=== PATIENT | female | born 1960 | race Caucasian/White ===

== ENCOUNTER 2016-07-06 14:40 | Emergency (ER) | payer BC ==
[~2016-07-06] VITALS: Ht 160 cm; Wt 65.9 kg
[2016-07-06 15:06] VITALS: Ht 160 cm; Wt 65.9 kg
[2016-07-06] MEDS ORDERED: LIDOCAINE/MYLANTA 40 ML BTL PO STA (15:10)
[2016-07-06] MEDS ORDERED: FAMOTIDINE 20 MG INJ IV STA (15:10)
[2016-07-06] MEDS ORDERED: LIDOCAINE 2% VISC 15 ML CUP PO ONE (15:30)
[2016-07-06 15:50] LABS: BASOPHILS % 0.3 % (0.0-2.0); EOSINOPHILS # 0.2 10^3/ul (0.0-0.5); EOSINOPHILS % 2.5 % (0.0-7.0); HEMATOCRIT 42.6 % (37.0-47.0); HEMOGLOBIN 14.2 g/dl (12.0-16.0); LYMPHOCYTES % 14.9 % (15.0-51.0); MEAN CORPUSCULAR HEMOGLOBIN 28.5 pg (29.0-33.0); MEAN CORPUSCULAR HGB CONC 33.4 g/dl (32.0-37.0); MEAN CORPUSCULAR VOLUME 85.2 fl (82.0-101.0); MEAN PLATELET VOLUME 9.6 fl (7.4-10.4); MONOCYTE # 0.5 10^3/ul (0.3-0.9); MONOCYTES % 7.4 % (0.0-11.0); NEUTROPHIL # 4.9 10^3/ul (1.6-7.5); NEUTROPHILS % 74.9 % (39.0-77.0); PLATELET COUNT 233 10^3/UL (140-440); RED CELL DISTRIBUTION WIDTH 12.6 % (11.5-14.5); UNCORRECTED WBC 6.6 10^3/ul (4.8-10.8); WHITE BLOOD COUNT 6.6 10^3/ul (4.8-10.8)
--- NOTE | 2016-07-06 15:59 | RADRPT ---
PROCEDURE: CT Brain without contrast. CLINICAL INDICATION: Pain, headache TECHNIQUE: Routine CT scan of the brain was performed on a high resolution multi detector scanner without intravenous contrast. One or more of the following dose reduction techniques were used: Auto mated exposure control; Adjustment of the mA and/or kV according to patient size; Use of iterative r econstruction technique. CTDI = 44 mGy. DLP = 630 mGy-cm. COMPARISON: No prior relevant examinations are available for comparison. FINDINGS: Hemorrhage: No evidence of intracranial hemorrhage. Acute ischemic changes: No evidence of acute ischemic changes. Mass effect/Midline shift: None. Parenchymal volume: Within normal limits for age. Ventricular system: Concordant with parenchymal volume. Chronic changes: Parenchymal attenuation is within normal limits. Extracranial soft tissues: Unremarkable. Calvarium: No fractures. Paranasal sinuses: Visualized paranasal sinuses are clear. Mastoid air cells: Visualized mastoid air cells are clear. IMPRESSION: No acute intracranial abnormalities. Normal appearance the brain parenchyma. MRI of the brain may be useful for further evaluation. RPTAT: AADD .Deniz Burris MD, MD Date Time Electronically viewed and signed by .Deniz Burris MD, on 07/06/2016 15:58 .B/
[2016-07-06 16:02] LABS: ALBUMIN 4.3 g/dl (3.3-4.9); CHLORIDE 102 mmol/L (97-110); CONDITION 1; POTASSIUM 4.1 mmol/L (3.5-5.1); SODIUM 143 mmol/L (135-144)
[2016-07-06 16:04] LABS: CREATININE 0.73 mg/dl (0.44-1.00)
[2016-07-06 16:05] LABS: ALANINE AMINOTRANSFERASE 40 IU/L (13-69); ALBUMIN/GLOBULIN RATIO 1.34; ALKALINE PHOSPHATASE 84 IU/L (42-121); ANION GAP 16 (8-16); ASPARTATE AMINO TRANSFERASE 35 IU/L (15-46); BILIRUBIN,INDIRECT 0.5 mg/dl (0-1.1); BILIRUBIN,TOTAL 0.5 mg/dl (0.2-1.3); BLOOD UREA NITROGEN 19 mg/dl (7-20); CALCIUM 9.1 mg/dl (8.4-10.2); CARBON DIOXIDE 29 mmol/L (21-31); GLUCOSE 91 mg/dl (70-220); TOTAL PROTEIN 7.5 g/dl (6.1-8.1)
[2016-07-06 16:27] LABS: TROPONIN-I < 0.010 ng/ml (0.00-0.12)
[2016-07-06] MEDS ORDERED: ULT50 PO (16:56)
[2016-07-06] MEDS ORDERED: LIDO20SO19 MM (16:56)
[2016-07-06] MEDS ORDERED: FEXO60TA20 PO (16:58)
[2016-07-06] MEDS ORDERED: traMADol 50 MG TAB PO ONE (17:00)
--- NOTE | 2016-07-06 17:01 | ERD ---
ER Documentation Chief Complaint Date/Time DATE: 07/06/16 TIME: 16:58 Chief Complaint ABDOMINAL PAIN FOR 1 WEEK HPI This a pleasant 55-year-old female is complaining of epigastric pain left upper quadrant pain for the past week after meals. The pain is a burning sensation that occurs after meals within 5 minutes. The patient has some nausea but no vomiting no diarrhea no chest pain or shortness of breath no pain in the back no melena. Patient does drink wine some other acidic foods. Patient is also complaining for the past week she has had off and on tingling to the left upper half of her lip. Currently is not happening. She has no symptoms of the face arms or legs no speech change no headaches. She is asymptomatic currently in this regard. ROS All systems reviewed and are negative except as per history of present illness. Medications Home Meds Active Scripts Lidocaine (Lidocaine Viscous) 100 Ml Soln, 15 ML MM BEFORE MEALS, #120 ML Prov:ROWAN JOVEL DO 07/06/16 Tramadol HCl (Tramadol HCl) 50 Mg Tablet, 50 MG PO Q6, #20 TAB Prov:ROWAN JOVEL DO 07/06/16 Allergies Allergies: Coded Allergies: Penicillins (Unverified Allergy, Unknown, 07/06/16) PMhx/Soc Medical and Surgical Hx: pt denies Medical Hx History of Surgery: Yes (APPENDECTOMY) Hx Alcohol Use: Yes Hx Substance Use: No Hx Tobacco Use: Yes Smoking Status: Former smoker FmHx Family History: No coronary disease Physical Exam Vitals Vital Signs Date Time Temp Pulse Resp B/P Pulse Ox O2 Delivery O2 Flow Rate FiO2 07/06/16 15:06 98.5 70 18 133/85 99 Physical Exam Const: Well-developed, well-nourished Head: Atraumatic, normocephalic Eyes: Normal Conjunctiva, PERRLA, EOMI, normal sclera, no nystagmus ENT: Normal External Ears, Nose and Mouth, moist mucus membranes. Neck: Full range of motion. No meningismus, no lymphadenopathy. Resp: Clear to auscultation bilaterally, no wheezing, rhonchi, rales Cardio: Regular rate and rhythm, no murmurs, S1 S2 present Abd: Soft, mild tenderness to the left upper quadrant, non distended. Normal bowel sounds, no guarding or rebound, no pulsitile abdominal masses or bruits Skin: No petechiae or rashes, no ecchymosis , no maculopapular rash Back: No midline or flank tenderness Ext: No cyanosis, or edema, FROM x 4, normal inspection, neurovascularly intact x 4 Neur: Awake and alert, STR 5/5 x 4, sensation intact x 4, no focal findings, cerebellum intact Psych: Normal Mood and Affect Result Diagram: 07/06/16 1520 07/06/16 1520 Results 24 hrs Laboratory Tests Test 07/06/16 15:20 Alanine Aminotransferase (ALT/SGPT) 40IU/L Albumin 4.3g/dl Albumin/Globulin Ratio 1.34 Alkaline Phosphatase 84IU/L Anion Gap 16 Aspartate Amino Transf (AST/SGOT) 35IU/L Basophils # 0.010^3/ul Basophils % 0.3% Blood Morphology Comment Blood Urea Nitrogen 19mg/dl Calcium Level 9.1mg/dl Carbon Dioxide Level 29mmol/L Chloride Level 102mmol/L Creatinine 0.73mg/dl Direct Bilirubin 0.00mg/dl Eosinophils # 0.210^3/ul Eosinophils % 2.5% Globulin 3.20g/dl Glucose Level 91mg/dl Hematocrit 42.6% Hemoglobin 14.2g/dl Indirect Bilirubin 0.5mg/dl Lipase 69U/L Lymphocytes # 1.010^3/ul Lymphocytes % 14.9% Mean Corpuscular Hemoglobin 28.5pg Mean Corpuscular Hemoglobin Concent 33.4g/dl Mean Corpuscular Volume 85.2fl Mean Platelet Volume 9.6fl Monocytes # 0.510^3/ul Monocytes % 7.4% Neutrophils # 4.910^3/ul Neutrophils % 74.9% Nucleated Red Blood Cells # 0.010^3/ul Nucleated Red Blood Cells % 0.0/100WBC Platelet Count 71639^3/UL Potassium Level 4.1mmol/L Red Blood Count 5.0010^6/ul Red Cell Distribution Width 12.6% Sodium Level 143mmol/L Total Bilirubin 0.5mg/dl Total Protein 7.5g/dl Troponin I < 0.010ng/ml White Blood Count 6.610^3/ul Current Medications Medications (Trade) Dose Ordered Sig/Suzanne Route PRN Reason Start Time Stop Time Status Last Admin Dose Admin Famotidine (Pepcid Iv) 20 mg ONCE STAT IV 07/06/16 15:10 07/06/16 15:12 DC 07/06/16 15:42 Miscellaneous Medication (Gi Cocktail (2)) 40 ml ONCE STAT PO 07/06/16 15:10 07/06/16 15:12 DC 07/06/16 15:42 Lidocaine (Xylocaine (Viscous)) 15 ml ONCE ONCE PO 07/06/16 15:30 07/06/16 15:31 DC 07/06/16 15:42 Tramadol HCl (Ultram) 50 mg ONCE ONCE PO 07/06/16 17:00 07/06/16 17:01 Procedures/MDM EKG: Rate/Rhythm: Normal Sinus Rhythm,NL intervals QRS, ST, QT: NORMAL VT, QRS, QT] Impression: NORMAL EKG PROCEDURE: CT Brain without contrast. CLINICAL INDICATION: Pain, headache TECHNIQUE: Routine CT scan of the brain was performed on a high resolution multi detector scanner without intravenous contrast. One or more of the following dose reduction techniques were used: Automated exposure control; Adjustment of the mA and/or kV according to patient size; Use of iterative reconstruction technique. CTDI = 44 mGy. DLP = 630 mGy-cm. COMPARISON: No prior relevant examinations are available for comparison. FINDINGS: Hemorrhage: No evidence of intracranial hemorrhage. Acute ischemic changes: No evidence of acute ischemic changes. Mass effect/Midline shift: None. Parenchymal volume: Within normal limits for age. Ventricular system: Concordant with parenchymal volume. Chronic changes: Parenchymal attenuation is within normal limits. Extracranial soft tissues: Unremarkable. Calvarium: No fractures. Paranasal sinuses: Visualized paranasal sinuses are clear. Mastoid air cells: Visualized mastoid air cells are clear. IMPRESSION: No acute intracranial abnormalities. Normal appearance the brain parenchyma. MRI of the brain may be useful for further evaluation. RPTAT: AADD .Deniz Burris MD, Date Time Electronically viewed and signed by .Deniz Burris MD, MD on 07/06/2016 15:58 .B/ CC: ROWAN JOVEL DO Patient received a GI cocktail says her pain was completely resolved. The paresthesia to the lip is uncertain. No evidence of stroke on CAT scan. I asked her to return if she has any worsening or strokelike symptoms. Also advised her to have an 81 mg baby aspirin a day with food. I explained to her that she does have some gastritis or ulcer and so until her stomach is better. Also reviewed with her diet precautions for gastritis. Patient is on omeprazole already. I will have her double it for a few days. Provide her with some Ultram and asked her to buy some aloe vera juice [id number] as this helps gastric Departure Diagnosis: Primary Impression: Gastritis Gastritis type: unspecified gastritis Chronicity: unspecified Gastritis bleeding: without bleeding Qualified Code: K29.70 - Gastritis without bleeding, unspecified chronicity, unspecified gastritis type Additional Impression: Paresthesia Condition: Stable Patient Instructions: Numbness, Gastritis Vs. Ulcer ROWAN JOVEL DO Jul 06, 2016 17:01
[2016-07-06 17:05] VITALS: BP 119/67; PULSE 67; RESP 19; TEMP 97.9
== END 2016-07-06 17:06 | disposition home or self-care (01) ==
LOC: E/R 14:40
DX: K29.70 Gastritis, unspecified, without bleeding (principal); R20.2 Paresthesia of skin; Z87.891 Personal history of nicotine dependence
CPT/HCPCS: 36415; 70450; 80053; 83690; 84484; 85025; 93005; 96374

== ENCOUNTER → 2016-08-05 | Outpatient (CLI) | payer BC ==
[~2016-08-05] MED LIST: FEXO60TA20 PO; LIDO20SO19 MM; TRAM50TA2 PO
[2016-08-05 10:29] LABS: ALBUMIN 4.1 g/dl (3.3-4.9)
[2016-08-05 10:30] LABS: BASOPHILS % 0.6 % (0.0-2.0); EOSINOPHILS # 0.1 10^3/ul (0.0-0.5); EOSINOPHILS % 2.8 % (0.0-7.0); HEMATOCRIT 41.6 % (37.0-47.0); HEMOGLOBIN 14.1 g/dl (12.0-16.0); LYMPHOCYTES # 1.1 10^3/ul (0.8-2.9); LYMPHOCYTES % 22.4 % (15.0-51.0); MEAN CORPUSCULAR HGB CONC 33.8 g/dl (32.0-37.0); MEAN CORPUSCULAR VOLUME 85.9 fl (82.0-101.0); MEAN PLATELET VOLUME 9.3 fl (7.4-10.4); MONOCYTE # 0.4 10^3/ul (0.3-0.9); MONOCYTES % 8.3 % (0.0-11.0); NEUTROPHIL # 3.1 10^3/ul (1.6-7.5); NEUTROPHILS % 65.9 % (39.0-77.0); PLATELET COUNT 227 10^3/UL (140-440); POTASSIUM 4.8 mmol/L (3.5-5.1); RED BLOOD COUNT 4.84 10^6/ul (4.20-5.40); RED CELL DISTRIBUTION WIDTH 12.6 % (11.5-14.5); UNCORRECTED WBC 4.7 10^3/ul (4.8-10.8); WHITE BLOOD COUNT 4.7 10^3/ul (4.8-10.8)
[2016-08-05 10:31] LABS: CONDITION 1
[2016-08-05 10:32] LABS: ALBUMIN/GLOBULIN RATIO 1.41; BILIRUBIN,INDIRECT 0.2 mg/dl (0-1.1); BILIRUBIN,TOTAL 0.2 mg/dl (0.2-1.3); CREATININE 0.74 mg/dl (0.44-1.00)
[2016-08-05 10:33] LABS: CALCIUM 9.3 mg/dl (8.4-10.2); CHOL/HDL RATIO 3.4 RATIO
== END | disposition home or self-care (01) ==
LOC: LAB 09:53
PROVIDERS: ATTEND Internal Medicine
DX: E78.5 Hyperlipidemia, unspecified (principal); D64.9 Anemia, unspecified
CPT/HCPCS: 80053; 80061; 85025

== ENCOUNTER → 2016-08-16 | Outpatient (CLI) | payer BC ==
[~2016-08-16] MED LIST changes: +IOHEXOL 300MG/ML 150 ML BTL ONE; +SOD CHLORIDE 0.9% 100 ML ONE
--- NOTE | 2016-08-17 10:19 | RADRPT ---
PROCEDURE: CT abdomen and pelvis with intravenous contrast. CLINICAL INDICATION: Severe abdominal pain TECHNIQUE: Following intravenous injection with 100 cc of Omnipaque-300 contrast, spiral CT of the abdomen pelvis was performed and is reconstructed at 2.5 mm contiguous axial intervals from the dom e of the diaphragm to the inferior pubic rami. Computer reformatted coronal and sagittal images are included. CT D I 8 millicurie Dose 417 millicurie per centimeter COMPARISON: None. FINDINGS: No alveolar infiltrate or mass is present. There is atelectasis or fibrosis on the visualized infer omedial aspect of the right middle lobe. No effusion is seen. The liver is of normal size, contour and attenuation with no mass or ductal dilatation. No gallston es are seen. No splenic, adrenal or pancreatic abnormalities present. Kidneys enhance contrast symmetrically. No hydronephrosis, calculus or masses present. Ureters are of normal course and caliber with no stone. No bladder mass or stone is present. Calcified fibroids are seen in the uterus. No adnexal mass is identified. No bowel mass or obstruction is seen. The appendix has been removed. There is no phlegmon, ascites or pneumoperitoneum. No aneurysm is detected. There is a markedly enlarged right external iliac chain lymph node measuring 18 mm in AP diameter. Enlarged bilateral inguinal nodes are present, right greater than left. No retroperitoneal or mesen teric adenopathy is detected. There is L5-S1 degenerative disk narrowing. No lytic or blastic lesions are seen. IMPRESSION: No evidence of urolithiasis, obstructive uropathy or diverticulitis. Post appendectomy. Enlarged right external iliac artery lymph node with enlarged bilateral inguinal nodes right greater than left. Question lymphoma versus metastatic disease. The right inguinal and pelvic nodes are a mendable to percutaneous biopsy. Fibroid uterus. Fibrosis versus atelectasis base right middle lobe. L5-S1 degenerative disk disease. .Leighton Cerna MD, MD Date Time Electronically viewed and signed by .Leighton Cerna MD, on 08/17/2016 10:18 .A/
== END | disposition home or self-care (01) ==
LOC: C/S 16:08
PROVIDERS: ATTEND Internal Medicine Hematology & Oncology
DX: R10.9 Unspecified abdominal pain (principal); Z90.49 Acquired absence of other specified parts of digestive tract; R59.0 Localized enlarged lymph nodes; D25.9 Leiomyoma of uterus, unspecified; M51.37 Other intervertebral disc degeneration, lumbosacral region
CPT/HCPCS: 74177; Q9967

== ENCOUNTER → 2016-09-02 | Outpatient (CLI) | payer BC ==
[~2016-09-02] MED LIST changes: -IOHEXOL 300MG/ML 150 ML BTL ONE; -SOD CHLORIDE 0.9% 100 ML ONE
[2016-09-02 17:33] LABS: ADD SCAN DIFF NO
[2016-09-02 17:44] LABS: BASOPHILS % 0.5 % (0.0-2.0); EOSINOPHILS # 0.2 10^3/ul (0.0-0.5); EOSINOPHILS % 2.2 % (0.0-7.0); HEMATOCRIT 41.7 % (37.0-47.0); HEMOGLOBIN 13.7 g/dl (12.0-16.0); LYMPHOCYTES # 1.1 10^3/ul (0.8-2.9); LYMPHOCYTES % 13.2 % (15.0-51.0); MEAN CORPUSCULAR HEMOGLOBIN 28.5 pg (29.0-33.0); MEAN CORPUSCULAR HGB CONC 32.9 g/dl (32.0-37.0); MEAN CORPUSCULAR VOLUME 86.7 fl (82.0-101.0); MEAN PLATELET VOLUME 10.9 fl (7.4-10.4); MONOCYTE # 0.6 10^3/ul (0.3-0.9); MONOCYTES % 7.2 % (0.0-11.0); NEUTROPHIL # 6.3 10^3/ul (1.6-7.5); NEUTROPHILS % 76.7 % (39.0-77.0); PLATELET COUNT 262 10^3/UL (140-415); RED BLOOD COUNT 4.81 10^6/ul (4.20-5.40); RED CELL DISTRIBUTION WIDTH 11.9 % (11.5-14.5); WHITE BLOOD COUNT 8.2 10^3/ul (4.8-10.8)
[2016-09-02 17:49] LABS: INR 0.97; PROTIME 12.9 Sec (12.2-14.2)
[2016-09-02 17:50] LABS: PARTIAL THROMBOPLASTIN TIME 25.9 Sec (25.0-35.0)
[2016-09-02 17:51] LABS: ALBUMIN 4.3 g/dl (3.3-4.9); POTASSIUM 4.3 mmol/L (3.5-5.1)
[2016-09-02 17:53] LABS: BILIRUBIN,INDIRECT 0.2 mg/dl (0-1.1); BILIRUBIN,TOTAL 0.2 mg/dl (0.2-1.3); CREATININE 0.81 mg/dl (0.44-1.00)
[2016-09-02 17:54] LABS: ALBUMIN/GLOBULIN RATIO 1.48; CALCIUM 9.5 mg/dl (8.4-10.2); TOTAL PROTEIN 7.2 g/dl (6.1-8.1)
--- NOTE | 2016-09-02 18:09 | RADRPT ---
PROCEDURE: XR Chest. CLINICAL INDICATION: Cough. Bronchitis. TECHNIQUE: Two views. Frontal and lateral. COMPARISON: No prior study is available for comparison. FINDINGS: The lungs are clear. The heart size is normal. There is no pleural effusion. There is no pneumothorax. IMPRESSION: 1. Normal chest radiograph. RPTAT: QQ .Philippe La MD, MD Date Time Electronically viewed and signed by .Philippe La MD, MD on 09/02/2016 18:09 .R/
== END | disposition home or self-care (01) ==
LOC: LAB 17:11
PROVIDERS: ATTEND Internal Medicine
DX: J20.9 Acute bronchitis, unspecified (principal)
CPT/HCPCS: 71020; 80053; 83615; 85025; 85610; 85730

== ENCOUNTER 2016-09-13 07:18 | Day surgery (SDC) | payer BC ==
[2016-09-13] VITALS (10 sets, daily range): BP systolic 97–126; BP diastolic 55–69; PULSE 60–68; RESP 16–25; Ht 157.5 cm; Wt 66.0 kg
[~2016-09-13] VITALS: Ht 157.5 cm; Wt 66.0 kg
[2016-09-13] MEDS ORDERED: SOD CHLORIDE 0.9% 1,000 ML IV SCH (08:00)
[2016-09-13] MEDS ORDERED: LIDOCAINE 1% (MDV) 20 ML INJ ONE (10:23)
[2016-09-13] MEDS ORDERED: MIDAZOLAM 1 MG/ML 2 ML INJ ONE (10:23)
[2016-09-13] MEDS ORDERED: DIPHENHYDRAMINE 50 MG INJ ONE (10:23)
[2016-09-13] MEDS ORDERED: FENTAnyl 50 MCG/ML VIAL ONE (10:23)
--- NOTE | 2016-09-13 13:59 | RADRPT ---
PROCEDURE: CT guided right pelvic lymph node biopsy. CLINICAL INDICATION: Enlarged right pelvic lymph node TECHNIQUE: Informed consent was obtained. The procedure, risks, benefits, complications and alternatives were e xplained to the patient. Risks including bleeding and infection were explained. The patient understo od and was willing to proceed. A procedural pause was performed. The patient's name, date of , and procedure to be performed were verified. One or more of the following dose reduction techniqu es were used: Automated exposure control, adjustment of the mA and/or kV according to patient size, use of iterative reconstruction technique. Using local anesthetic, sterile technique and CT guidance, an 18-gauge automated core biopsy needle was used to biopsy the enlarged lymph node in the right side of the pelvis. Multiple passes were ma de. Adequate tissue was obtained according to the pathologist present during the procedure. The ne edle was removed. A postprocedural scan was performed. A dressing was applied. The patient tolerated procedure well. COMPARISON: CT scan of the abdomen and pelvis dated 08/16/2016. FINDINGS: Initial images demonstrate the tip of the needle at the anterior edge of the lesion in question. Post biopsy images demonstrate no immediate complication. IMPRESSION: 1. Successful CT guided right iliac lymph node biopsy. RPTAT: QQ .Philippe La MD, MD Date Time Electronically viewed and signed by .Philippe La MD, on 09/13/2016 13:58 .R/
== END 2016-09-13 14:30 | disposition home or self-care (01) ==
LOC: SDS 07:18
PROVIDERS: ATTEND Internal Medicine
DX: C82.35 Follicular lymphoma grade IIIa, lymph nodes of inguinal region and lower limb (principal)
CPT/HCPCS: 38505; 77012; J1200; J2250; J3010

== ENCOUNTER 2016-09-25 10:42 | Day surgery (SDC) | payer BC ==
--- NOTE | 2016-09-16 15:30 | CONS ---
DATE OF ADMISSION: 09/13/2016 DATE OF CONSULTATION: 09/16/2016 TYPE OF CONSULTATION: Preoperative gastroenterology consultation. Dear Dr. Mirza: I thank you very much for this kind referral. HISTORY OF PRESENT ILLNESS: Ms. Nitza Nicholas is a 55-year-old female patient who has been referred to me for further evaluation of abdominal pain and change in the bowel habit. The patient states s he has got epigastric pain, which is not responding to therapy with pantoprazole. There is no defin ite past history of peptic ulcer disease. She is not taking any nonsteroidal anti-inflammatory agen ts. Her appetite has been good, and she is not losing any weight. The patient had abdominal ultras ound and CT scan done and according to her, she was noted to have enlarged lymph nodes in the right inguinal area for which she has undergone biopsy. Other than that, no other abnormality detected. There is no history of gallstones. She does not have any fever, chills or jaundice. There is no hi story of liver disease. The patient has noticed a change in the bowel habit with constipation and s he has been taking Metamucil. The patient has history of colon polyps. Her last colonoscopy was 7 years ago and at that time colon polyps were removed. She is not a hypertensive or diabetic. She d oes not have any heart disease or lung problem. There is no history of kidney disease. She is stat us post appendectomy. SOCIAL HISTORY: She is a nonsmoker. She does not abuse alcohol. FAMILY HISTORY: Negative for gastrointestinal tract neoplasm. ALLERGIES: SHE IS ALLERGIC TO PENICILLIN. MEDICATIONS: 1. Pantoprazole. 2. Metamucil. PHYSICAL EXAMINATION VITAL SIGNS: She is 5 feet 3 inches tall and she weighs 140 pounds. HEART: Examination of the heart reveals normal first and second heart sounds. LUNGS: Clear. ABDOMEN: Soft without any distention. Liver and spleen are not palpable. There are no masses. Th ere is no focal tenderness. Normal bowel sounds are heard. CENTRAL NERVOUS SYSTEM: Does not reveal any focal neurological deficit. IMPRESSION: 1. Upper abdominal pain, not responding to therapy with pantoprazole. 2. Abdominal ultrasound and CT scan did not reveal any abnormality other than enlarged lymph node i n the right inguinal region for which she has undergone biopsy. 3. Change in the bowel habit with constipation. 4. The patient is on Metamucil. 5. History of colon polyps. 6. The patient had colonoscopy more than 7 years ago and colon polyps were removed. 7. Status post appendectomy. 8. HISTORY OF ALLERGY TO PENICILLIN. PLAN: 1. Continue pantoprazole. 2. Endoscopic examination to rule out peptic ulcer disease. 3. Colonoscopy for further followup of colon polyps and for possible polypectomy. The procedures and possible complications are well explained to the patient. She understands and co nsents to the procedures. I thank you once again. With warmest personal regards, JUDAH AYALA MD Dictated By: JUDAH AYALA MD GD/NTS Conf#: [id number] DID#: [id number]
[~2016-09-25] VITALS: Ht 160 cm; Wt 66.2 kg
[2016-09-25 11:41] VITALS: Ht 160 cm; Wt 66.2 kg
[2016-09-25] MEDS ORDERED: PANT40TA4 PO (11:49)
[2016-09-25] MEDS ORDERED: METAM PO (11:49)
[2016-09-25 12:09] VITALS: BP 155/91; PULSE 70; RESP 18
[2016-09-25 12:59] VITALS: BP 101/64; PULSE 56; RESP 16
[2016-09-25] MEDS ORDERED: FENTAnyl 50 MCG/ML VIAL ONE (13:05)
[2016-09-25] MEDS ORDERED: MIDAZOLAM 1 MG/ML 2 ML INJ ONE ×2 (13:05)
[2016-09-25 13:25] VITALS: BP 97/69; PULSE 60; RESP 13
--- NOTE | 2016-09-25 14:18 | GILP ---
DATE OF PROCEDURE: 09/25/2016 NAME OF PROCEDURES: 1. Esophagogastroduodenoscopy and biopsy. 2. Colonoscopy. SURGEON: Judah Ayala MD PREOPERATIVE DIAGNOSES: 1. Abdominal pain. 2. Change in the bowel habit. 3. History of colon polyps. POSTOPERATIVE DIAGNOSES: 1. Hiatal hernia. 2. Gastroesophageal reflux disease. 3. Gastritis with erosions. 4. Gastric mucosal biopsies were taken for H. pylori test. 5. 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 6. Colonoscopy all the way to the cecum. 7. Internal hemorrhoids. 8. No colon neoplasm was identified. INDICATION FOR THE PROCEDURE: Ms. Nitza Nicholas is a 55-year-old female patient who had upper abdom inal pain, not responding to therapy. She also noticed a change in the bowel habit. The patient rausch d a history of colon polyps, so the patient was scheduled for endoscopy and colonoscopy for further evaluation. The procedures and possible complications are well explained to the patient. The patient understood and consented to the procedure. DESCRIPTION OF PROCEDURE: Under the influence of fentanyl and Versed, the gastroscope was carefully introduced into the esophagus and under direct vision, it was advanced to the stomach and through t he pylorus into the duodenal bulb and descending duodenum. FINDINGS: ESOPHAGUS: The patient had hiatal hernia and gastroesophageal reflux disease. STOMACH: She had gastritis and gastric mucosal biopsies were taken for H. pylori test. She was not ed to have a pancreatic rest on the gastric antrum. DUODENUM: Normal. The colonoscope was carefully introduced in the rectum and under direct vision, it was advanced all the way to the cecum. FINDINGS: The patient had internal hemorrhoids. No colitis or neoplasm was identified. She tolerated the procedures very well and there was no complication from the procedures. At the en d of the procedures, she was awake with stable vital signs and she was discharged home to the care o f her family. IMPRESSION: 1. Hiatal hernia. 2. Gastroesophageal reflux disease. 3. Gastritis. 4. Gastric mucosal biopsies were taken for H. pylori test. 5. 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 PLAN: 1. Continue pantoprazole. 2. Add Zantac 300 mg p.o. at bedtime. 3. Await H. pylori test report. Dictated By: JUDAH MATHIAS/PAT Conf#: [id number] DID#: [id number] CC: JUDAH AYALA MD;*[facility]*
== END 2016-09-25 15:27 | disposition home or self-care (01) ==
LOC: GIL 10:42
PROVIDERS: ATTEND Internal Medicine Gastroenterology
DX: Z12.11 Encounter for screening for malignant neoplasm of colon (principal); K44.9 Diaphragmatic hernia without obstruction or gangrene; K21.9 Gastro-esophageal reflux disease without esophagitis; K29.60 Other gastritis without bleeding; K64.8 Other hemorrhoids; Z88.0 Allergy status to penicillin
CPT/HCPCS: 43239; 45378; J2250; J3010

== ENCOUNTER 2016-10-26 15:07 | Emergency (ER) | payer BC ==
[~2016-10-26] VITALS: Ht 157.5 cm; Wt 67.0 kg
[~2016-10-26 15:07] MED LIST changes: -LIDO20SO19 MM; +METAM PO; +PANT40TA4 PO; -TRAM50TA2 PO
[2016-10-26 15:13] VITALS: Ht 157.5 cm; Wt 67.0 kg
--- NOTE | 2016-10-26 16:02 | RADRPT ---
PROCEDURE: CT Head without. CLINICAL INDICATION: Headache. TECHNIQUE: The study was performed utilizing a multi-slice, multidetector CT scanner. Direct spira l 1 mm axial sections were obtained through the head without the use of intravenous contrast materia l. 1 or more of the following dose reduction techniques were utilized: Automated exposure control, adjustment of the mA and/or kV according to patient's size, iterative reconstruction technique. Co robbie and sagittal reformations were obtained. The images were reviewed on a PACS workstation. RADIATION DOSE: CTDIvol: 45.0 mGyDLP: 630.2 mGy-cm COMPARISON: No prior studies are available for comparison. FINDINGS: There is no intracranial hemorrhage, extra-axial fluid collection, mass lesion, midline shift or hyd rocephalus. There is mild prominence of the cerebral sulci, lateral and third ventricles. The whit e matter is unremarkable. The matos-white matter differentiation is preserved. The basal cisterns a re patent. The midline structures are intact. The orbits, calvarium and extracranial soft tissues are normal in appearance. The visualized paranasal sinuses, mastoid air cells and middle ear cavitie s are normally aerated. IMPRESSION: 1. No acute intracranial abnormality. No intracranial hemorrhage, extra-axial fluid collection, ma ss lesion or hydrocephalous. . 2. Mild peripheral and central cerebral volume loss, within normal limits for age. 3. No definite hypodensities within the white matter or evidence of intracranial metastasis. If cl inical concern for metastasis, MRI with and without contrast would be helpful for further evaluation . RPTAT: HGAS .Jimi Wallace MD, MD Date Time Electronically viewed and signed by .Jimi Wallace MD, MD on 10/26/2016 16:01 .S/
[2016-10-26] MEDS ORDERED: HYDR-902 PO (16:19)
[2016-10-26] MEDS ORDERED: IBUP-1542 PO (16:19)
[2016-10-26 16:28] VITALS: BP 121/77; PULSE 72; RESP 18; TEMP 98.1
[2016-10-26] MEDS ORDERED: ACETAMINOPHEN 325 MG TAB PO ONE (16:30)
--- NOTE | 2016-10-26 17:50 | ERD ---
ER Documentation Chief Complaint Date/Time DATE: 10/26/16 TIME: 17:48 Chief Complaint CHEMO ON FRIDAY, HAS SEVERE RIVERO HPI Patient is a 55-year-old female with lymphoma who presents with a headache. The headache started last night and was gradual in onset. It was worse today. It is in the posterior part of her head and radiates to the left front side. She felt cold inside her head. She tried to Tylenol. She had no slurred speech and no weakness of her arms or legs. She did have chemotherapy 1 week ago. Her primary doctor is Dr. Caruso. ROS All systems reviewed and are negative except as per history of present illness. Medications Home Meds Active Scripts Hydrocodone/Acetaminophen ([place] 10-325 Tablet) 1 Each Tablet, 1 TAB PO Q6H Y for PAIN, #7 TAB Prov:FRANCI COLÓN MD 10/26/16 Ibuprofen* (Motrin*) 600 Mg Tab, 600 MG PO Q8, #30 TAB Prov:FRANCI COLÓN MD 10/26/16 Reported Medications Pantoprazole* (Pantoprazole*) 40 Mg Tablet.dr, 40 MG PO DAILY, TAB 09/25/16 Psyllium* (Metamucil*) 1 Pkt Susp, 1 PKT PO DAILY, PACKET 09/25/16 Fexofenadine Hcl* (Kelly*) 60 Mg Tablet, 60 MG PO DAILY, #30 TAB 07/06/16 Allergies Allergies: Coded Allergies: Penicillins (Unverified Allergy, Unknown, 09/25/16) PMhx/Soc History of Surgery: Yes (APPY, C SECTION, LAP) Anesthesia Reaction: No Hx Neurological Disorder: No Hx Respiratory Disorders: Yes (HX BRONCHITIS) Hx Cardiac Disorders: No Hx Psychiatric Problems: Yes (HX OF ANXIETY, NO MEDS) Hx Miscellaneous Medical Probl: Yes (LYMPHOMA DX LAST WEEK) Hx Alcohol Use: Yes (OCCASIONALLY) Hx Substance Use: No Hx Tobacco Use: Yes (QUIT 10 YRS AGO) Smoking Status: Former smoker FmHx Family History: diabetes Physical Exam Vitals Vital Signs Date Time Temp Pulse Resp B/P Pulse Ox O2 Delivery O2 Flow Rate FiO2 10/26/16 16:28 98.1 72 18 121/77 99 Room Air 10/26/16 15:13 98.1 63 18 142/77 99 Physical Exam Const: No acute distress Head: Atraumatic Eyes: Normal Conjunctiva ENT: Normal External Ears, Nose and Mouth. Neck: Full range of motion..~ No meningismus. Resp: Clear to auscultation bilaterally Cardio: Regular rate and rhythm, no murmurs Abd: Soft, non tender, non distended. Normal bowel sounds Skin: No petechiae or rashes Back: No midline or flank tenderness Ext: No cyanosis, or edema Neur: Awake and alert, no slurred speech, no weakness of the upper or lower extremities bilaterally, gait is normal Psych: Normal Mood and Affect Results 24 hrs Current Medications Medications (Trade) Dose Ordered Sig/Suzanne Route PRN Reason Start Time Stop Time Status Last Admin Dose Admin Acetaminophen (Tylenol Tab) 650 mg ONCE ONCE PO 10/26/16 16:30 10/26/16 16:31 DC 10/26/16 16:23 Procedures/MDM CT brain negative for intra-cranial hemorrhage or mass per radiology. Patient is a 55-year-old female with lymphoma who presents with headache. CT scan was done and does not show any signs of intracranial hemorrhage or brain mass. At this point I believe outpatient management is appropriate. I doubt meningitis. The patient should follow-up with the primary doctor within 24-48 hours and can return if symptoms worsen. The patient can take ibuprofen or [place] as needed for pain. Departure Diagnosis: Primary Impression: Headache Headache type: unspecified Headache chronicity pattern: acute headache Intractability: not intractable Qualified Code: R51 - Acute nonintractable headache, unspecified headache type Condition: Fair Patient Instructions: Self-Care for Headaches Referrals: REJI CARUSO MD (PCP) Additional Instructions: Call your primary care doctor TOMORROW for an appointment during the next 1-2 days.See the doctor sooner or return here if your condition worsens before your appointment time. FRANCI COLÓN MD October 26, 2016 17:50
== END 2016-10-26 16:32 | disposition home or self-care (01) ==
LOC: E/R 15:07
DX: R51 Headache (principal); Z87.891 Personal history of nicotine dependence
CPT/HCPCS: 70450

== ENCOUNTER 2016-11-04 07:58 | Day surgery (SDC) | payer BC ==
[~2016-11-04] VITALS: Ht 160 cm; Wt 67.1 kg
[2016-11-04] VITALS (19 sets, daily range): BP systolic 98–117; BP diastolic 60–73; PULSE 61–77; RESP 12–16; Ht 160 cm; Wt 67.1 kg
[~2016-11-04 07:58] MED LIST changes: +HYDR-902 PO; +IBUP-1542 PO
[2016-11-04] MEDS ORDERED: SOD CHLORIDE 0.9% 1,000 ML IV SCH (08:30)
[2016-11-04] MEDS ORDERED: POLYMYXIN/BACITRACIN 1L IRRIG IRR ONE ×2 (08:30→10:00)
[2016-11-04] MEDS ORDERED: ALLO300T2 PO (08:58)
[2016-11-04] MEDS ORDERED: CALC-209 PO (08:58)
[2016-11-04] MEDS ORDERED: [UNRECOGNIZED DRUG - CODE] PO (08:59)
[2016-11-04] MEDS ORDERED: ALPR0.5T6 PO (08:59)
[2016-11-04] MEDS ORDERED: ASCO500C7 PO (09:00)
[2016-11-04] MEDS ORDERED: LIDOCAINE 1% (MDV) 20 ML INJ ONE (09:57)
[2016-11-04] MEDS ORDERED: SOD CHLORIDE 0.9% 500 ML ONE (09:58)
[2016-11-04] MEDS ORDERED: FENTAnyl 50 MCG/ML VIAL ONE ×2 (09:58→10:58)
[2016-11-04] MEDS ORDERED: MIDAZOLAM 1 MG/ML 2 ML INJ ONE ×2 (09:58→10:58)
[2016-11-04] MEDS ORDERED: CLINDAMYCIN 600 MG/D5W (PMX) 50 ML IVPB ONE (10:00)
[2016-11-04] MEDS ORDERED: LIDOCAINE 2% (MDV) 20 ML INJ INJ SCH (10:30)
[2016-11-04] MEDS ORDERED: HEPARIN 1000 UNITS/ML 10 ML INJ ONE (10:31)
[2016-11-04] MEDS ORDERED: HYDROCODONE/APAP (5/325) TAB PO PRN (12:00)
--- NOTE | 2016-11-04 12:54 | RADRPT ---
PROCEDURE: FLUOROSCOPIC AND ULTRASONOGRAPHIC-GUIDED PLACEMENT OF RIGHT CHEST PORT. CLINICAL INDICATION: History of lymphoma. Venous access for chemotherapy. TECHNIQUE: INTRAPROCEDURE MEDICATIONS: PB antibiotic solution 40 cc applied topically. 600 mg clindamycin intra venously, intra-op. IV Versed and Fentanyl per protocol. Informed consent was obtained. The procedure, risks, benefits, complications and alternatives were explained to the patient. Risks including bleeding, infection, and pneumothorax were explained. The patient understood and was willing to proceed. A procedural pause was performed. The patient's name, date of , and procedure to be performed w ere verified. The central line was inserted with all elements of maximal sterile barrier technique. All of the fol lowing were used: head covering, facial mask, sterile gown, sterile gloves, a large sterile sheet, h and hygiene, and 2% chlorhexidine for cutaneous antisepsis. The right neck and anterior/superior chest wall were prepped and draped in usual sterile fashion. Limited sonography of the right neck was then performed. Noted is a patent right internal jugular ve in. Following the local injection of 1% lidocaine, the right internal jugular vein was punctured under s onographic guidance with a 20-gauge needle through which a 0.018 inch floppy tip guidewire was advan bethany into the superior vena cava with fluoroscopic guidance. The tract was dilated to 5 Turkish and the wire was then replaced with a 0.035 in Amplatz guidewire. Serial dilatation was then performed and a 7 Turkish peel away sheath was introduced. A site just inferior to the clavicle in the superior anterior right chest wall was localized. One pe rcent lidocaine was used as local anesthesia. A transverse 2.5 cm incision was made utilizing a 15 b lade scalpel. Utilizing blunt dissection a subcutaneous pocket was created inferior to the incision. The cavity was flushed with approximately 40 cc of PB antibiotic solution. The catheter was tunneled underneath the skin from the newly created pocket to the puncture site in the neck. The central line catheter was pulled through the tract. The catheter was then advanced thr ough the sheath until the tip was positioned in the right atrium. The peel-away sheath was removed. The catheter was flushed and clamped. The 6.6 Turkish catheter was then connected to the Angiodynamics power port. The port was then placed into the pocket. Prior to closing the instrument and sponge count was verified and was correct. The subcutaneous tissue was closed with 3-0 Vicryl interrupted suture. The skin at the site of the pock et and in the neck was closed with 4-0 Vicryl suture in a running subcuticular technique. The port w as flushed with 1500 units of heparin in 1.5 cc utilizing a Perry needle. The needle was removed. A dressing was applied. The patient tolerated procedure well. COMPARISON: None. FINDINGS: Ultrasound images were recorded and stored in the patient's medical record. Final radiographic images demonstrate the tip of the catheter in the upper right atrium. A total of 1.0 minutes of fluoroscopy time was used. The ultrasound images demonstrate the needle entering th e internal jugular vein. IMPRESSION: 1. Successful ultrasonographic and fluoroscopic guided placement of right chest power port. RPTAT: QQ .Philippe La MD, Date Time Electronically viewed and signed by .Philippe La MD, on 11/04/2016 12:53 .R/
--- NOTE | 2016-11-04 12:57 | RADRPT ---
PROCEDURE: Ultrasound guidance for placement of needle in right internal jugular vein. CLINICAL INDICATION: Venous access. TECHNIQUE: Prior to the procedure, informed consent was obtained. Risks including bleeding, infection, and pneu mothorax were explained to the patient. The patient understood and was willing to proceed. A procedu ral pause was performed. The patient's name, date of , and procedure to be performed were verif ied. The central line was inserted with all elements of maximal sterile barrier technique. All of th e following were used: head covering, facial mask, sterile gown, sterile gloves, a large sterile she et, hand hygiene, and 2% chlorhexidine for cutaneous antisepsis. The right neck and anterior/super ior chest wall was prepped and draped in usual sterile fashion. Limited sonography of the right neck was then performed. Noted is a patent right internal jugular ve in. Ultrasound images were recorded and stored in the patient's medical record. Following the local injection of Xylocaine, the right internal jugular vein was punctured under sono graphic guidance with a 20-gauge needle through which a 0.018 inch floppy tip guidewire was advanced into the superior vena cava. The patient tolerated the procedure well. The remainder of the proce dure was performed and dictated under separate cover. COMPARISON: None. FINDINGS: The ultrasound images demonstrate a patent right internal jugular vein. The subsequent images demon strate the needle entering the right internal jugular vein. IMPRESSION: 1. Ultrasound guidance for a needle placement in right internal jugular vein. RPTAT: QQ .Philippe La MD, Date Time Electronically viewed and signed by .Philippe La MD, on 11/04/2016 12:57 .R/
== END 2016-11-04 14:25 | disposition home or self-care (01) ==
LOC: SDS 07:58
PROVIDERS: ATTEND Internal Medicine Hematology & Oncology
DX: C85.90 Non-Hodgkin lymphoma, unspecified, unspecified site (principal)
CPT/HCPCS: 36561; 76942; C1788; J1644; J2250; J3010; J7040

== ENCOUNTER 2017-06-16 18:05 | Emergency (ER) | payer BC ==
[~2017-06-16] VITALS: Ht 162.6 cm; Wt 70.0 kg
[~2017-06-16 18:05] MED LIST changes: +ALLO300T2 PO; +ALPR0.5T6 PO; +ASCO500C7 PO; +CALC-209 PO; -HYDR-902 PO; -IBUP-1542 PO; -METAM PO; -PANT40TA4 PO; +[UNRECOGNIZED DRUG - CODE] PO
[2017-06-16 18:11] VITALS: Ht 162.6 cm; Wt 70.0 kg
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
[2017-06-16] MEDS ORDERED: ONDANSETRON 4 MG INJ IV STA (18:43)
[2017-06-16] MEDS ORDERED: IBUPROFEN 600 MG TAB PO ONE (19:00)
--- NOTE | 2017-06-16 19:55 | RADRPT ---
PROCEDURE: CT brain without IV contrast. CLINICAL INDICATION: Altered mental status/head trauma. TECHNIQUE: CT examination of the brain was performed on a 64-slice multidetector scanner. The pat ient was examined without IV contrast. Sagittal and coronal reformatted images were made. The imag es were reviewed on a PACS workstation. DICOM images are available. Total radiation dose: Total CTDIvol: 45 mGy. Total DLP: 720 mGy-cm. One or more of the following dose reduction techniques were used: automated exposure control, adjustment of the mA and/or kV acco rding to patient size, or use of iterative reconstruction technique COMPARISON: CT brain, 10/26/2016. FINDINGS: The ventricles and cerebral sulci are normal in size and morphology. The matos/white matter different iation is well preserved. There is no other abnormal intra-axial high, low density lesion, suggesti ng tumor, infarct, bleeding, av malformation or inflammatory mass. No subdural or epidural hematoma. No midline shift. The visualized paranasal sinuses and mastoid ai r cells are clear. The orbits are unremarkable. The calvarium is intact. No scalp abnormalities a re seen. IMPRESSION: 1. Unremarkable CT brain without IV contrast. RPTAT: GG .Leighton Montiel MD, MD Date Time Electronically viewed and signed by .Leighton Montiel MD, on 06/16/2017 19:55 .Y/
[2017-06-16] MEDS ORDERED: IBUP-1542 PO (20:15)
[2017-06-16] MEDS ORDERED: ONDA4TAB14 PO (20:15)
[2017-06-16 20:57] VITALS: BP 134/76; PULSE 70; RESP 18; TEMP 98.1
== END 2017-06-16 20:59 | disposition home or self-care (01) ==
LOC: FTE 18:05
DX: S00.83XA Contusion of other part of head, initial encounter (principal); W01.198A Fall on same level from slipping, tripping and stumbling with subsequent striking against other object, initial encounter; Y92.9 Unspecified place or not applicable; Z87.891 Personal history of nicotine dependence
CPT/HCPCS: 70450; 96374; 99285; J2405

== ENCOUNTER → 2017-06-30 | Outpatient (CLI) | END | disposition home or self-care (01) ==

== ENCOUNTER 2017-07-14 06:55 | Day surgery (SDC) | END 2017-07-14 12:30 | disposition home or self-care (01) ==

== ENCOUNTER 2017-07-28 21:41 | Emergency (ER) | END 2017-07-29 00:23 | disposition home or self-care (01) ==

== ENCOUNTER → 2018-01-10 | Outpatient (CLI) | END | disposition home or self-care (01) ==